=== PATIENT | female | born 1940 | race Caucasian/White ===

== ENCOUNTER → 2016-12-16 | Outpatient (CLI) | payer MEDICARE, OTHER ==
[~2016-12-16] MED LIST: AMLODIPINE BESYL5 MG PO; ANASTROZOLE1 M1 PO; DARVOCET N 1001 TAB PO; FLUOXETINE HCL40 MG PO; METFORMIN HCL500 MG PO; PRAVASTATIN SOD20 MG PO
== END | disposition home or self-care (01) ==
LOC: CT 12-11 11:00
DX: R91.1 Solitary pulmonary nodule (principal); R06.02 Shortness of breath; R05 Cough; Z85.3 Personal history of malignant neoplasm of breast; Z90.12 Acquired absence of left breast and nipple

== ENCOUNTER → 2017-07-28 | Outpatient (CLI) | payer MEDICARE, OTHER | END | disposition home or self-care (01) | LOC: CT 07-23 11:00 | DX: R91.1 Solitary pulmonary nodule (principal); R59.0 Localized enlarged lymph nodes ==

== ENCOUNTER → 2019-08-12 | Outpatient (CLI) | payer MEDICARE, OTHER | END | disposition home or self-care (01) | LOC: US 12:18 | DX: R10.2 Pelvic and perineal pain (principal); R10.819 Abdominal tenderness, unspecified site ==

== ENCOUNTER → 2021-02-08 | Outpatient (CLI) | payer MEDICARE, OTHER | END | disposition home or self-care (01) | LOC: RAD 13:34 | PROVIDERS: ATTEND Family Medicine | DX: T85.49XA Other mechanical complication of breast prosthesis and implant, initial encounter (principal); R53.83 Other fatigue; R06.02 Shortness of breath; Z90.12 Acquired absence of left breast and nipple ==

== ENCOUNTER → 2021-04-02 | Outpatient (CLI) | payer MEDICARE, OTHER | END | disposition home or self-care (01) | LOC: CARD 00:01 | PROVIDERS: ATTEND Internal Medicine Cardiovascular Disease | DX: I35.8 Other nonrheumatic aortic valve disorders (principal) ==

== ENCOUNTER → 2021-05-17 | Outpatient (CLI) | payer MEDICARE, OTHER | END | disposition home or self-care (01) | LOC: US 13:57 | PROVIDERS: ATTEND Family Medicine | DX: R55 Syncope and collapse (principal); E04.2 Nontoxic multinodular goiter; I25.10 Atherosclerotic heart disease of native coronary artery without angina pectoris ==

== ENCOUNTER → 2021-06-28 | Outpatient (CLI) | payer MEDICARE, OTHER | END | disposition home or self-care (01) | LOC: CT 12:52 | PROVIDERS: ATTEND Physician Assistant | DX: R91.8 Other nonspecific abnormal finding of lung field (principal); C50.919 Malignant neoplasm of unspecified site of unspecified female breast; D64.9 Anemia, unspecified; E61.1 Iron deficiency; I25.10 Atherosclerotic heart disease of native coronary artery without angina pectoris; J47.9 Bronchiectasis, uncomplicated; J98.4 Other disorders of lung; K44.9 Diaphragmatic hernia without obstruction or gangrene; K76.0 Fatty (change of) liver, not elsewhere classified; N28.1 Cyst of kidney, acquired; Z78.0 Asymptomatic menopausal state ==

== ENCOUNTER → 2021-08-13 | Outpatient (CLI) | payer MEDICARE, OTHER ==
[2021-08-13 13:12] LABS: CHOLESTEROL 186 mg/dL (<200); LDL CHOLESTEROL 88 mg/dL (9-159); TRIGLYCERIDES 246 mg/dl (<150)
== END | disposition home or self-care (01) ==
LOC: LAB 11:58
PROVIDERS: ATTEND Family Medicine
DX: M47.816 Spondylosis without myelopathy or radiculopathy, lumbar region (principal); M41.86 Other forms of scoliosis, lumbar region; E78.2 Mixed hyperlipidemia; R73.9 Hyperglycemia, unspecified; M25.78 Osteophyte, vertebrae

== ENCOUNTER → 2023-03-28 | Outpatient (CLI) | payer MEDICARE, OTHER ==
[2023-03-28 14:31] LABS: BASO % 0.6 % (0.0-1.0); LYMPH # 1.5 10*3/uL (1.3-4.4); LYMPH % 29.7 % (27.0-41.0); MEAN CORPUSCULAR HGB 29.2 pg (27.0-31.0); MEAN PLATELET VOLUME 8.3 fl (9.6-12.3); MONO # 0.5 10*3/uL (0.1-1.0); MONO % 9.8 % (3.0-9.0); NEUT % 59.5 % (47.0-73.0); PLATELET COUNT AUTOMATED 368 10*3/uL (130-400); RED BLOOD COUNT 4.07 10*6/uL (4.10-5.10); RED CELL DISTRI WIDTH 13.5 % (0-14.5); WHITE BLOOD COUNT 5.1 10*3/uL (4.8-10.8)
[2023-03-28 14:53] LABS: ALKALINE PHOSPHATASE 57 U/L (46-116); BUN 14 mg/dl (9-23); CHLORIDE 106 mmol/L (98-107); POTASSIUM 3.6 mmol/L (3.4-5.1); SGPT/ALT 14 U/L (10-49); TOTAL PROTEIN 7.1 gm/dL (6.0-8.0)
== END | disposition home or self-care (01) ==
LOC: RAD 00:48 → LAB 00:48 → RAD 14:00
PROVIDERS: Internal Medicine Hematology & Oncology; ATTEND Family Medicine
DX: C50.919 Malignant neoplasm of unspecified site of unspecified female breast (principal); D64.9 Anemia, unspecified; E61.1 Iron deficiency; R91.8 Other nonspecific abnormal finding of lung field; M81.0 Age-related osteoporosis without current pathological fracture; Z78.0 Asymptomatic menopausal state

== ENCOUNTER → 2025-02-15 | Outpatient (CLI) | payer MEDICARE, OTHER | END | disposition home or self-care (01) | LOC: CARD 13:00 | PROVIDERS: ATTEND Internal Medicine Cardiovascular Disease | DX: I07.1 Rheumatic tricuspid insufficiency (principal); R01.1 Cardiac murmur, unspecified; R06.02 Shortness of breath; R07.89 Other chest pain ==

== ENCOUNTER → 2025-03-28 | Outpatient (CLI) | payer MEDICARE, OTHER | END | disposition home or self-care (01) | LOC: RAD 09:22 | PROVIDERS: ATTEND Internal Medicine Hematology & Oncology | DX: M81.0 Age-related osteoporosis without current pathological fracture (principal); C50.919 Malignant neoplasm of unspecified site of unspecified female breast; D64.9 Anemia, unspecified; E61.1 Iron deficiency; R91.8 Other nonspecific abnormal finding of lung field; E04.9 Nontoxic goiter, unspecified; Z78.0 Asymptomatic menopausal state ==

== ENCOUNTER → 2025-06-08 | Outpatient (CLI) | payer MEDICARE, OTHER ==
[~2025-06-08] MED LIST changes: +AMLODIPINE BES2.5 MG PO; -AMLODIPINE BESYL5 MG PO; +CALCIUM CITRAT1 EA19 PO; +FEOSOL325 MG PO; +PANTOPRAZOLE SO40 MG PO; -PRAVASTATIN SOD20 MG PO; +PRAVASTATIN SOD40 MG PO; +Regadenoson 0.4 MG/5 ML SYR IV ONE; +Technetium Tc 99M Tetrofosmi 0.23 MG KIT IJ SCH; +VAZALORE81 MG PO; +VITAMIN B122500 MC1 PO; +VITAMIN D350 MCG PO
== END | disposition home or self-care (01) ==
LOC: CARD 01:32
PROVIDERS: ATTEND Family Medicine
DX: R06.02 Shortness of breath (principal)